=== PATIENT | female | born 1980 | race Caucasian/White ===

== ENCOUNTER 2021-03-29 15:14 | Emergency (ER) | payer BC, SELFPAY ==
--- NOTE | ~2021-03-29 | XR_ITS ---
EXAMINATION: XR foot RT min 3V DATE: 03/29/2021 15:39 INDICATION: Right foot injury and pain. TECHNIQUE: 4 views of right foot were obtained. COMPARISON: None. FINDINGS: A bunionette is noted. No fracture. There is mild osteoarthritis of first metatarsophalange al joint and third proximal interphalangeal joint. There is an enthesophyte at plantar aspect of calc aneal tuberosity.. IMPRESSION: 1. Mild polyarticular osteoarthritis. 2. Bunionette. Reviewed, dictated and finalized at location A.
[2021-03-29 15:20] VITALS: BP 107/52; PULSE 89; RESP 18; TEMP 36.6; O2SAT 99
--- NOTE | 2021-03-29 15:20 | ED.LOWEXIN ---
HPI - Extremity Injury (Lower) General Chief Complaint: Extremity Injury, Lower Stated Complaint: right foot injury Time Seen by Provider: 03/29/21 15:20 Source: patient and RN notes reviewed History of Present Illness HPI Narrative: Patient is a 40-year-old female who presents the urgent care with complaints of right foot pain. Patient states that she was cleaning out her garage approximately 1 hour ago and dropped a box of tools onto the top of her right foot. Patient states that she also had an injury 2 weeks ago, kicking a metal rack in the middle of the night. Patient states that her pain never fully resolved after that incident 2 weeks ago. Patient has not taken anything [id number] for her pain prior to arrival. States that pain exacerbates with weightbearing/ambulation. No other acute complaints or injuries. No acute distress noted. Patient aware of the plan of care. Some parts of this dictation were generated by voice recognition software and may contain typographical and/or grammatical inaccuracies. Related Data Home Medications Medication Instructions Recorded Confirmed albuterol sulfate See Rx Instructions .ROUTE .COMPLEX 03/29/21 03/29/21 pantoprazole 40 mg PO DAILY 03/29/21 03/29/21 sertraline 150 mg PO DAILY 03/29/21 03/29/21 triamterene-hydrochlorothiazid 1 tablet PO DAILY 03/29/21 03/29/21 Allergies Allergy/AdvReac Type Severity Reaction Status Date / Time amoxicillin Allergy Unknown Unknown Verified 03/29/21 15:20 Penicillins Allergy Unknown Unknown Verified 03/29/21 15:20 Sulfa (Sulfonamide AdvReac Mild Nausea Verified 01/02/17 19:00 Antibiotics) Review of Systems Review of Systems: CONSTITUTIONAL: Denies fever, chills, or sweats. EYES: Denies visual changes, redness, or discharge. ENT: Denies rhinorrhea, congestion, sore throat, or otalgia. CARDIOVASCULAR: Denies chest pain, palpitations, or edema. RESPIRATORY: Denies cough or dyspnea. GASTROINTESTINAL: Denies abdominal pain, nausea, vomiting, or diarrhea. GENITOURINARY: Denies dysuria or hematuria. SKIN: Denies rash or itching. MUSCULOSKELETAL: Reports of right foot pain NEUROLOGIC: Denies headache, numbness, or weakness. All other systems reviewed are negative, except as documented in HPI. PMFSH Comments At the time of my signature, I reviewed and agree with the nursing past medical, surgical, social, and family history. There is no relevant family history pertinent to the patient complaint. Exam Narrative: GENERAL: This is a well-nourished, well-developed patient, in no apparent distress. HEAD: normocephalic, atraumatic. EYES: PERRL. Sclera clear/white. Vision is grossly intact. EARS: External ears normal NOSE: External nose normal with no obvious nasal discharge, nares without redness, no rhinorrhea. THROAT: Mucous membranes moist NECK: Neck supple CARDIOVASCULAR: Regular rate and rhythm without murmurs, gallops, or rubs. RESPIRATORY: Clear to auscultation. Breath sounds equal bilaterally. No wheezes, rales, or rhonchi. SKIN: warm, intact with no suspicious lesions or rash, good texture and turgor. NEURO: awake, alert, and oriented to person, place and time. There were no obvious focal neurologic abnormalities. EXTREMITIES: Mild to moderate dorsal right foot tenderness with faded ecchymosis. Positive strong right pedal pulse with capillary refill less than 2 seconds. Range of motion to right lower extremity within normal limits with exacerbated pain on weightbearing/ambulation. No obvious deformity or fracture. Course Vital Signs Vital signs: Vital Signs Temperature 98 F 03/29/21 15:20 Pulse Rate 89 03/29/21 15:20 Respiratory Rate 18 03/29/21 15:20 Blood Pressure 107/52 L 03/29/21 15:20 Pulse Oximetry 99 03/29/21 15:20 Temperature 98 F 03/29/21 15:20 Pulse Rate 89 03/29/21 15:20 Respiratory Rate 18 03/29/21 15:20 Blood Pressure 107/52 L 03/29/21 15:20 Pulse Oximetry 99 03/29/21 15:20 Re
== END 2021-03-29 15:50 | disposition home or self-care (01) ==
PROVIDERS: Emergency Provider Nurse Practitioner Family
DX: S90.31XA Contusion of right foot, initial encounter (principal); W20.8XXA Other cause of strike by thrown, projected or falling object, initial encounter; I10 Essential (primary) hypertension; K21.9 Gastro-esophageal reflux disease without esophagitis
CPT/HCPCS: 73630; 99213; G0463

== ENCOUNTER 2023-03-06 08:18 | Emergency (ER) | payer OTHER, SELFPAY ==
--- NOTE | 2023-03-06 08:22 | ED.URI ---
HPI - URI/Sore Throat General Chief Complaint: Upper Respiratory Infection Stated Complaint: strep Time Seen by Provider: 03/06/23 08:21 Source: patient Mode of arrival: ambulatory Limitations: no limitations History of Present Illness HPI Narrative: Melissa is a 42-year-old female patient presenting to the clinic today with c/o sore throat at just began this morning. She reports she is concerned about strep. She is leaving for a cruise tonight. Recently has have Levaquin for pneumonia. Just finished Levaquin on the 28 of February. Reports that her throat feels tight, dry, and is having discomfort with swallowing. No other concerns or symptoms. MD elicited complaint: sore throat Related Data Home Medications Medication Instructions Recorded Confirmed albuterol sulfate 90 mcg/actuation See Rx Instructions .Route .COMPLEX 03/29/21 03/06/23 aerosol inhaler pantoprazole 40 mg tablet,delayed 40 mg PO DAILY 03/29/21 03/06/23 release sertraline 100 mg tablet 150 mg PO DAILY 03/29/21 03/06/23 triamterene 37.5 1 tablet PO DAILY 03/29/21 03/06/23 mg-hydrochlorothiazide 25 mg tablet tirzepatide 12.5 mg/0.5 mL mg subcut 03/06/23 subcutaneous pen injector (Alvin) Allergies Allergy/AdvReac Type Severity Reaction Status Date / Time amoxicillin Allergy Unknown Unknown Verified 03/06/23 08:37 Penicillins Allergy Unknown Unknown Verified 03/06/23 08:37 Sulfa (Sulfonamide AdvReac Mild Nausea Verified 03/06/23 08:37 Antibiotics) Review of Systems Review of Systems: Pertinent positives per HPI. Patient denies any fever, chills, rash, headache, visual changes, dizziness, cough, shortness of breath, chest pain, palpitations, nausea, vomiting, diarrhea, constipation, abdominal pain, or any urinary issues. PMFSH Comments At the time of my signature, I reviewed and agree with the nursing past medical, surgical, social, and family history. There is no relevant family history pertinent to the patient complaint. Exam Narrative: General: Well-developed, well nourished, in no apparent distress Head: Normocephalic, atraumatic Eyes: Pupils equally round and reactive to light bilaterally, EOM intact, sclera and conjunctive clear, no discharge, lids normal Ears: TMs intact and clear, ear canals clear, no drainage, grossly hearing normal. Nose: Nares patent, no discharge, no inflammation, no sinus tenderness. Mouth: Oral pharynx with white exudate with mild tonsillar enlargement, no masses, good dentition, MMM. No oral thrush lesions on tongue Neck: Supple, trachea midline, no enlargement of anterior or posterior cervical nodes, no thyroid masses or goiter palpable. Cardio: Regular rate and rhythm, s1 and s2 normal, no murmur appreciated. Resp: Clear to auscultation bilaterally, no rhonchi, rales, wheezing or rubs Course Course Emergency Course: Portions of this record may have been created with voice recognition software. Level of Care: Express Care Visit Vital Signs Vital signs: Vital signs reviewed MDM - URI/Sore Throat MDM Narrative Medical decision making narrative: At the time of visit patient is resting comfortably on the exam table. Strep screen was obtained was negative. I suspect patient has exudate of pharyngitis versus oral thrush. No thrush lesions were noted on the tongue however patient reports that her throat feels dry and tight. Patient is leaving on a cruise tonight so I will go ahead and give her prescription for azithromycin to cover bacterial pharyngitis and nystatin swish and swallow to cover for oral thrush. Supportive measures were discussed with the patient she voiced understanding of the discharge instructions and agrees to treatment plan. Differential Diagnosis Differential diagnosis: Likely upper respiratory infection, otitis media, sinusitis, viral infection, bronchitis, influenza, pharyngitis and other (COVID) Discharge Plan Discharge Clinical Impression: Pharyngitis
[2023-03-06 08:30] VITALS: BP 127/83; PULSE 95; RESP 18; TEMP 36.3; O2SAT 100
== END 2023-03-06 08:52 | disposition home or self-care (01) ==
PROVIDERS: Emergency Provider Nurse Practitioner Family
DX: J02.9 Acute pharyngitis, unspecified (principal); I10 Essential (primary) hypertension; K21.9 Gastro-esophageal reflux disease without esophagitis; F41.9 Anxiety disorder, unspecified
CPT/HCPCS: 87081; 87880; 99213; G0463